=== PATIENT | female | born 1930 | race Caucasian/White ===

== ENCOUNTER 2017-05-12 04:31 | Emergency (ER) | payer OTHER, BC ==
--- NOTE | 2017-05-12 04:35 | PDOC ---
History of Present Illness - History of Present Illness Initial Comments: 05/12/17 04:40 The patient is a 86 year old female, with a significant past medical history of diabetes, hypertension, dementia, who presents to the emergency department s/p witnessed cardiac arrest 50 minutes prior to presentation in the ED. The patient was intubated in field, 7.5 ET tube. The patient was given Epi x3 and bicarb x1 with no return of spontaneous vital signs. Upon arrival, Jass device was operating properly and patient was being bagged through the ET tube. Allergies: penicillins <Zayda Agosto - Last Filed: 05/12/17 05:59> - General History Source: EMS <Keenan Gonzales - Last Filed: 05/12/17 06:52> - General Stated Complaint: CARDIAC ARREST Time Seen by Provider: 05/12/17 04:34 Past History <Zayda Agosto - Last Filed: 05/12/17 05:59> - Past Medical History Dementia: Yes Diabetes: Yes HTN: Yes - Surgical History Abdominal Surgery: Yes (HERNIA REPAIR) Orthopedic Surgery: Yes (RTKR) - Immunization History Immunization Up to Date: Yes - Suicide/Smoking/Psychosocial Hx Smoking History: Never smoked Have you smoked in the past 12 months: No Hx Alcohol Use: No Drug/Substance Use Hx: No Substance Use Type: None Hx Substance Use Treatment: No <Keenan Gonzales - Last Filed: 05/12/17 06:52> - Past Medical History Allergies/Adverse Reactions: Allergies Allergy/AdvReac Type Severity Reaction Status Date / Time Penicillins Allergy Verified 05/12/17 04:37 Home Medications: Ambulatory Orders Glimepiride 1 mg PO DAILY 08/20/15 Acetaminophen [Tylenol .Regular Strength -] 650 mg PO Q4H PRN #0 tablet Docusate Sodium [Colace -] 100 mg PO DAILY capsule 08/26/15 Oxycodone HCl [Roxicodone -] 5 mg PO Q6H PRN #0 tablet 08/26/15 Polyethylene Glycol 3350 [Miralax 119 gm Btl -] 17 gm PO DAILY bottle 08/26/15 Amlodipine Besylate [Norvasc -] 2.5 mg PO DAILY #30 tablet 12/23/15 Cholecalciferol (Vitamin D3) [Vitamin D3 -] 1,000 unit PO DAILY #60 tab Donepezil HCl [Aricept -] 5 mg PO DAILY tablet 12/24/15 Furosemide [Lasix -] 20 mg PO DAILY tablet 12/24/15 Memantine HCl [Namenda -] 10 mg PO BID tablet 12/24/15 Review of Systems - Review of Systems Able to Perform ROS?: No (nonresponsive) <Zayda Agosto - Last Filed: 05/12/17 05:59> *Physical Exam - Vital Signs Last Vital Signs Temp Pulse Resp BP Pulse Ox 0 L 0 L 00/00 05/12/17 04:37 05/12/17 04:37 05/12/17 04:37 - Physical Exam Comments: 05/12/17 04:41 GENERAL: +unresponsive HEENT: +Pupils fixed, dilated, nonreactive. Normocephalic, atraumatic. CARDIOVASCULAR: +No spontaneous heart sound PULMONARY: +No spontaneous lung sounds ABDOMEN: Soft, EXTREMITIES: +IO left tibia. Extremities no deformities NEUROLOGICAL: +Nonreactive <Zayda Agosto - Last Filed: 05/12/17 05:59> Medical Decision Making - Medical Decision Making 05/12/17 05:59 Dr. Omer was paged requesting a doctor to doctor consult <Zayda Agosto - Last Filed: 05/12/17 05:59> - Medical Decision Making 05/12/17 04:46 Dr. Gonzales: The scribe's documentation has been prepared under my direction and personally reviewed by me in its entirery. I confirm that the note above accurately reflects all work, treatment, procedures, and medical decision making performed by me. pt had no spontaneous vitals upon arrival. No cardiac activity seen on [employer]. Prounced by me at 4:30 am. ME called, [employer]. Case not accepted #[id number]. 05/12/17 06:11 Home health aid was called to inform . Stated was sleeping and will be inform. Pt son Miguel Angel Hernandez also informed. 05/12/17 06:[address] Melina Gordon with sign certificate. [phone]. ME will send her the paper work. <Keenan Gonzales - Last Filed: 05/12/17 06:52> *DC/Admit/Observation/Transfer - Attestations Scribe Attestion: 05/12/17 04:44 Documentation prepared by Zayda Agosto, acting as medical typist for Keenan Gonzales DO <Zayda Agosto - Last Filed: 05/12/17 05:59> - Discharge Dispostion Admit: No <Keenan Gonzales - Last Filed: 05/12/17 06:52> Diagnosis at time of Disposition: Cardiac arrest - Patient Instructions Printed Discharge Instructions: Cardiac Arrest
[2017-05-12 04:42] VITALS: BP 00/00; PULSE 0; BMI 43.0
[2017-05-12] MEDS ORDERED: SODIUM BICARBONATE 8.4% - 50 ML ONE (04:58)
== END 2017-05-12 06:10 | disposition expired ==
LOC: JER 04:31
PROC: 5A02210 Assistance with Cardiac Output using Balloon Pump, Continuous (ICD-10-PCS; principal; 2017-05-12)
DX: I46.9 Cardiac arrest, cause unspecified (principal); I10 Essential (primary) hypertension; E11.9 Type 2 diabetes mellitus without complications; F03.90 Unspecified dementia, unspecified severity, without behavioral disturbance, psychotic disturbance, mood disturbance, and anxiety; Z96.651 Presence of right artificial knee joint
CPT/HCPCS: 92950; 99283-25